=== PATIENT | female | born 1990 | race Hispanic/Latino ===

== ENCOUNTER 2024-11-15 05:32 | Day surgery (SDC) | payer OTHER ==
[~2024-11-15] VITALS: Ht 170.2 cm; Wt 89.0 kg
[~2024-11-15 05:32] MED LIST: LACTATED RINGER'S 1,000 ML IV SCH
[2024-11-15 05:58] VITALS: BP 129/73
[2024-11-15] MEDS ORDERED: IBLOOD GLUCOSE TEST STRIP 1 EA TEST VI PRN ×2 (07:00→07:45)
[2024-11-15] MEDS ORDERED: LIDOCAINE HCL 1% 5 ML SDV INJ ONE (07:00)
[2024-11-15] MEDS ORDERED: fentaNYL citrate 100 MCG/2 ML VIAL ONE (07:14)
[2024-11-15] MEDS ORDERED: DEXAMETHASONE SOD PHOS 4 MG/ML VIAL ONE (07:16)
[2024-11-15] MEDS ORDERED: KETOROLAC TROMETHAMINE 30 MG/ML VIAL ONE (07:16)
[2024-11-15] MEDS ORDERED: ACETAMINOPHEN 1,000 MG/100 ML VIAL ONE (07:16)
[2024-11-15] MEDS ORDERED: LIDOCAINE HCL 2% 5 ML SDV ONE (07:16)
[2024-11-15] MEDS ORDERED: CEFAZOLIN SOD 1,000 MG/10 ML VIAL ONE (07:41)
[2024-11-15] MEDS ORDERED: fentaNYL citrate 50 MCG/ML SDV IV PRN (07:45)
[2024-11-15] MEDS ORDERED: NALOXONE HCL 0.4 MG SYR IV PRN (07:45)
--- NOTE | 2024-11-15 09:08 | NUR ---
11/15/24 0908 Violeta Davis 0855-PATIENT ARRIVED TO PACU REACTIVE TO VERBAL STIMULI OPENING EYES PATIENT LAYING LEFT LATERAL. PATIENT ON RA 94% RR EVEN. PATIENT DENIES PAIN OR NAUSEA. DRESSING TO RIGHT THIGH INTACT BETO DRAIN SANGUINOUS DRAINAGE. 0900-PER DR GRAHAM BELL TO PLACE TEGADERM OVER BETO TUBING. TEGADERM PLACED. PATIENT REPOSTIONED TO BACK. 0908-PATIENT AWAKE HOB ELEVATED DENIES PAIN OR NAUSEA. RA 96% RR EVEN.
[2024-11-15 09:40] VITALS: BP 111/80
--- NOTE | 2024-11-15 09:48 | NUR ---
0345-PT BACK TO ROOM FROM PACU ON RA. RECEIVED REPORT FROM PASHA ALCANTAR. PT IS AWAKE. RESP EVEN AND UNLABORED. RATES PAIN 6/10, STATES IT STINGS. THIS IS TOLERABLE FOR HER AT THIS TIME. DENIES NAUSEA. PT TAKING SIPS OF WATER. NO OTHER NEEDS AT THIS TIME. AT BEDSIDE. CALL LIGHT WITHIN REACH.
[2024-11-15] MEDS ORDERED: HYDROCODONE/ACETA 7.5/325 TAB PO ONE (10:30)
[2024-11-15 10:45] VITALS: BP 130/73
--- NOTE | 2024-11-15 11:52 | NUR ---
LE 1020-PT RATES PAIN 08/27. SHE WILL BE TRAVELING OVER AN HOUR AND WOULD LIKE A PAIN PILL BEFORE SHE IS GOES HOME. PT IS DRINKING COFFEE AND EATING CRACKERS. LE 1025-VO PER DR STEVENSON FOR BRIANNE 7.5 1-2 TAB(S) NOW. LE 1030-PAIN MEDICATION GIVEN PER EMAR.
--- NOTE | 2024-11-15 11:55 | NUR ---
ELMER 1035-EDUCATION GIVEN ON BETO DRAIN. THIS RN DEMONSTRATED HOW TO EMPTY AND MAINTAIN BETO DRAIN. PT AND VERBALIZED UNDERSTANDING. INFORMATION SHEET WITH CHART GIVEN TO PT. PT WILL GET DRESSED. IN ROOM WITH PT. CALL LIGHT WITHIN REACH.
--- NOTE | 2024-11-15 11:57 | NUR ---
LE 1040-PT AMBULATES TO RESTROOM WITH . GAIT STEADY AND TOLERATED WELL. PT ABLE TO VOID. LE 1045-PT BACK TO ROOM. VSS. WENT OVER DISCHARGE INSTRUCTIONS WITH PT. WENT OVER POSTOP MEDICATIONS. EXTRA SUPPLIES GIVEN FOR DRESSING CHANGE IF NEEDED. ALL QUESTIONS ANSWERED. LE 1100-PT AMBULATES TO WHEELCHAIR AND RIDE PROVIDED TO FRONT OF HOSPITAL WHERE WAS WAITING WITH THE CAR.
[2024-11-15] MEDS ORDERED: SEVOFLURANE 250 ML BTL INH ONE (14:45)
--- NOTE | 2024-11-16 12:10 | OR ---
[facility] [address] [facility] [place], [place] [address] Signed DATE OF OPERATION: 11/15/2024 SURGEON: Dakota Lopez DO PREOPERATIVE DIAGNOSIS: Large right lateral leg mass. POSTOPERATIVE DIAGNOSIS: Large right lateral leg mass with 15 x 15 x 10 cm right leg lipoma/mass deep. PROCEDURE PERFORMED: Excision of right leg mass. ANESTHESIA: General. ESTIMATED BLOOD LOSS: Less than 20 mL. DRAINS: Include Kofi drain x1. COMPLICATION: None. DESCRIPTION OF PROCEDURE: The patient was brought to the operative room, placed in supine position. After induction of general endotracheal anesthesia, the right leg was identified and had been previously marked with a marker in the region of the mass itself. The marking of the mass was noted approximately about 15 x 15 cm in measurement. Through a linear incision over the central portion of the mass effect, skin was incised with a scalpel. The dissection was continued down through the subcutaneous tissue. Bleeding points were electrocoagulated. identified and it was skeletonized down medially to the anterior fascia of the lateral aspect of the leg. This was further mobilized under direct visualization utilizing blunt and sharp technique and Bovie cautery circumferentially to mobilize along the inferior aspect as well as inferolateral portion of the flap on the right side and dissection again was performed and the mass was removed from the subcutaneous tissue utilizing blunt and sharp technique and Bovie cautery. The mass was then grasped with a series of Allis clamps. It was excised in its entirety from the anterior fascia of the musculature of the right Electronically Signed By: DAKOTA LOPEZ DO 11/16/24 1210 PATIENT NAME: JOSELO NOVAK OPERATIVE REPORT DATE OF : [birth year] REPORT #: [id number] PHYSICIAN: DAKOTA LOPEZ DO PCP: MINA PECK PA-C REPORT IS CONFIDENTIAL AND NOT TO BE RELEASED WITHOUT AUTHORIZATION [facility] [address] [place], [place] [address] Signed lateral leg and passed off the field for pathologic review. The cavity noted to be enlarged and the region was copiously irrigated dry. Bleeding points were controlled with electrocautery. Due to the large nature of the removed approximately 15 x 15 x [address] a suction drain was then performed through a separate stab incision. A 19 Kofi drain was then placed and secured to the anterior skin with 2-0 nylon. fashion and fully covered the defect itself. The subcutaneous tissue was then closed with interrupted 2-0 Vicryl in an inverted fashion. Skin was closed with samuel. A sterile dressing was applied, Ric wrap was applied. The patient tolerated the procedure well, taken to recovery room in satisfactory condition. DO LEE Barron/SKYL /[id number] Copies: ~ Electronically Signed By: DAKOTA LOPEZ DO 11/16/24 1210 PATIENT NAME: KISHOREJOSELO OPERATIVE REPORT DATE OF : [birth year] REPORT #: [id number] PHYSICIAN: DAKOTA LOPEZ DO PCP: MINA PECK PA-C REPORT IS CONFIDENTIAL AND NOT TO BE RELEASED WITHOUT AUTHORIZATION
--- NOTE | 2024-11-18 14:10 | PATH ---
[facility] [address] [facility] [address] [facility] [place] [address] Signed SPECIMEN(S): A RIGHT LATERAL THIGH SPECIMEN SOURCE: A. RIGHT LATERAL THIGH CLINICAL HISTORY: Right thigh lipoma. FINAL PATHOLOGIC DIAGNOSIS: Right lateral thigh: - Cameron lobulated adipose tissue and vasculature, consistent with lipoma. JVR:clv MICROSCOPIC EXAMINATION: Histologic sections of all submitted blocks are examined by light microscopy. These findings, together with the gross examination, support the pathologic diagnosis. A MDM2 immunostain was performed with appropriate controls on block A2 and is negative for staining in the cells of concern supporting the diagnosis.. JVR:clv GROSS DESCRIPTION: The specimen, labeled and designated "Luis Miguel Gonzales, " and designated on the requisition "mass right lateral thigh," is received in formalin and consists of 197 grams of yellow-flores adipose tissue that measure 13.5 x 10.8 x 5.7 cm in aggregate. Several of the pieces are partially surfaced by a transparent membranous tissue. The tissue is inked and serially sectioned to reveal a pink homogeneous cut surface. [employer] Operator sections are submitted in (A1-A4). FB (under the direct supervision of a pathologist) The Gross Description was prepared using a voice recognition system. The report was reviewed for accuracy; however, sound-alike word errors, addition and/or deletions may occur. If there is any question about this report, please contact Client Services. ADDITIONAL NOTES: Immunohistochemical and/or in situ hybridization studies were performed on this case with the appropriate positive controls that react as expected. This test was developed and its performance characteristics determined by [facility]. It has not been cleared or approved by the U.S. Food and Drug Administration. The FDA has determined that PATIENT NAME: JOSELO GONZALES PATHOLOGY DATE OF : [birth year] REPORT #: [id number] PHYSICIAN: [facility] PCP: MINA PECK PA-C REPORT IS CONFIDENTIAL AND NOT TO BE RELEASED WITHOUT AUTHORIZATION [facility] [address] [place], [place] [address] Signed such clearance or approval is not necessary. This test is used for clinical purposes. It should not be regarded as investigational or for research. [facility] is certified under the Clinical Laboratory Improvement Amendments of 1988 (CLIA) as qualified to perform high complexity clinical laboratory testing. This assay has not been validated for specimens that have been decalcified PERFORMING LABORATORY: Technical component was performed by [facility], [address] [place] [address] (CLIA# [id number]). Professional interpretation was performed by [facility] - [address] [address] (CLIA#: [id number]). Diagnostician: Long Quezada MD Pathologist Electronically Signed 11/18/2024 Copies: ~ PATIENT NAME: JOSELO GONZALES PATHOLOGY DATE OF : [birth year] REPORT #: [id number] PHYSICIAN: [facility] PCP: MINA PECK PA-C REPORT IS CONFIDENTIAL AND NOT TO BE RELEASED WITHOUT AUTHORIZATION
== END 2024-11-15 11:01 | disposition home or self-care (01) ==
LOC: OPS 05:32 → DS 05:32 → OPS 07:30 → DS 07:30 → OPS 11:01
PROVIDERS: ATTEND Surgery
PROC: 0JBL0ZZ Excision of Right Upper Leg Subcutaneous Tissue and Fascia, Open Approach (ICD-10-PCS; principal; 2024-11-15 07:30)
DX: D17.23 Benign lipomatous neoplasm of skin and subcutaneous tissue of right leg (principal); E66.9 Obesity, unspecified
CPT/HCPCS: 00400; 84703; A9270; J0131; J0690; J1100; J1885; J2003; J2405; J2704; J3010